=== PATIENT | male | born 1995 | race Two or more races ===

== ENCOUNTER 2021-01-13 06:02 | Emergency (ER) | payer OTHER ==
[~2021-01-13] VITALS: Ht 172.7 cm; Wt 75.3 kg
--- NOTE | 2021-01-13 06:56 | NUR ---
PT PROVIDED WITH WARM BLANKETS FOR COMFORT.
[2021-01-13] MEDS ORDERED: NALO1DIS2 IJ (08:33)
[2021-01-13 10:06] VITALS: BP 135/66
--- NOTE | 2021-01-13 10:06 | NUR ---
Patient given written and verbal discharge instructions. Patient verbalizes understanding of instructions. Patient is ambulatory with steady gait. Refuses offer of nursing home placement. Patient given list of available shelters in surrounding area.
== END 2021-01-13 10:06 | disposition home or self-care (01) ==
LOC: EDBD 06:04 → ER 06:04
DX: T50.901A Poisoning by unspecified drugs, medicaments and biological substances, accidental (unintentional), initial encounter (principal); F19.10 Other psychoactive substance abuse, uncomplicated; Y92.89 Other specified places as the place of occurrence of the external cause